=== PATIENT | male | born 1980 | race Caucasian/White ===

== ENCOUNTER 2024-09-03 17:03 | Emergency (ER) | payer MEDICAID ==
[~2024-09-03] VITALS: Ht 175.3 cm; Wt 81.8 kg
[2024-09-03 17:05] VITALS: BP 128/91; PULSE 100; RESP 16; TEMP 97.6; O2SAT 98
== END 2024-09-03 18:34 | disposition left against medical advice (07) ==
LOC: ER 17:03
DX: Z02.89 Encounter for other administrative examinations (principal); Z53.21 Procedure and treatment not carried out due to patient leaving prior to being seen by health care provider

== ENCOUNTER 2024-09-04 06:22 | Emergency (ER) | payer MEDICAID ==
[~2024-09-04] VITALS: Ht 175.3 cm; Wt 71.4 kg
[2024-09-04 06:41] VITALS: BP 113/77; PULSE 93; TEMP 98.1; O2SAT 98
[2024-09-04 07:39] LABS: BASOPHILS # (AUTO) 0.1 X10'3 (0-0.2); BASOPHILS % (AUTO) 1.1 % (0-1); EOSINOPHILS # (AUTO) 0.2 X10'3 (0-0.9); EOSINOPHILS % (AUTO) 4.7 % (0-6); HEMOGLOBIN 13.3 g/dl (14.0-17.9); LYMPHOCYTES # (AUTO) 1.6 X10'3 (1.1-4.8); LYMPHOCYTES % (AUTO) 29.6 % (21-51); MEAN CORPUSCULAR HEMOGLOBIN 31.8 PG (27.0-31.0); MEAN CORPUSCULAR VOLUME 93.4 FL (78-98); MEAN PLATELET VOLUME 9.1 FL (7.4-10.4); MONOCYTES # (AUTO) 0.4 X10'3 (0-0.9); MONOCYTES % (AUTO) 6.6 % (2-12); NEUTROPHILS # (AUTO) 3.1 X10'3 (1.8-7.7); PLATELET COUNT 161 X10'3 (140-440); RED BLOOD COUNT 4.18 X10'6 (4.70-6.10); WHITE BLOOD COUNT 5.3 X10'3 (4.5-11.0)
[2024-09-04 07:50] VITALS: RESP 16
[2024-09-04 08:25] LABS: ALBUMIN 3.4 G/DL (3.4-5.0); ANION GAP 5 (8-16); BLOOD UREA NITROGEN 15 MG/DL (7-18); BUN/CREATININE RATIO 14.9 (10.0-20.0); CALCIUM 8.4 MG/DL (8.5-10.1); CHLORIDE 107 MMOL/L (99-107); CREATININE 1.01 MG/DL (0.60-1.10); GLUCOSE 123 MG/DL (70-104); POTASSIUM 3.6 MMOL/L (3.5-5.1); SODIUM 139 MMOL/L (135-145); THYROID STIMULATING HORMONE 0.63 ulU/ml (0.34-4.50); TOTAL CARBON DIOXIDE 27.5 MMOL/L (24-32); eCRCL 91 ML/MIN; eGFR 80 ML/MIN
[2024-09-04 08:27] LABS: ETHANOL < 10 MG/DL (<10)
== END 2024-09-04 07:40 | disposition home or self-care (01) ==
LOC: ER 06:23
DX: F12.10 Cannabis abuse, uncomplicated (principal); F15.10 Other stimulant abuse, uncomplicated; Z20.822 Contact with and (suspected) exposure to COVID-19
CPT/HCPCS: 36415; 80048; 80320; 84443; 85025; 87811; 99283

== ENCOUNTER 2024-09-15 20:33 | Emergency (ER) | payer MEDICAID ==
[~2024-09-15] VITALS: Ht 175.3 cm; Wt 75.7 kg
[2024-09-15 20:55] VITALS: BP 103/65; PULSE 97; RESP 18; TEMP 98.1; O2SAT 98
== END 2024-09-15 21:13 | disposition left against medical advice (07) ==
LOC: ER 20:33
DX: F15.10 Other stimulant abuse, uncomplicated (principal); F11.23 Opioid dependence with withdrawal
CPT/HCPCS: 99281

== ENCOUNTER 2024-09-17 08:57 | Emergency (ER) | payer MEDICAID, OTHER ==
[~2024-09-17] VITALS: Ht 175.3 cm; Wt 70.4 kg
[2024-09-17 09:01] VITALS: BP 125/87; PULSE 99; RESP 16; TEMP 97.7; O2SAT 100
== END 2024-09-17 10:22 | disposition home or self-care (01) ==
LOC: ER 08:57
DX: F15.10 Other stimulant abuse, uncomplicated (principal); F99 Mental disorder, not otherwise specified
CPT/HCPCS: 99281

== ENCOUNTER 2024-10-01 20:56 | Emergency (ER) | payer MEDICARE, MEDICAID ==
[~2024-10-01] VITALS: Ht 177.8 cm; Wt 65.9 kg
[2024-10-01 21:01] VITALS: BP 144/78; PULSE 88; RESP 14; TEMP 98.1; O2SAT 98
== END 2024-10-01 22:23 | disposition left against medical advice (07) ==
LOC: ER 20:58
DX: Z02.89 Encounter for other administrative examinations (principal); Z53.21 Procedure and treatment not carried out due to patient leaving prior to being seen by health care provider

== ENCOUNTER 2024-10-04 08:31 | Emergency (ER) | payer MEDICARE, MEDICAID ==
[~2024-10-04] VITALS: Ht 175.3 cm; Wt 68.2 kg
[2024-10-04 10:15] VITALS: BP 118/78; PULSE 98; RESP 18; TEMP 98.5; O2SAT 97
== END 2024-10-04 10:18 | disposition home or self-care (01) ==
LOC: ER 08:32
DX: F15.10 Other stimulant abuse, uncomplicated (principal); F12.10 Cannabis abuse, uncomplicated
CPT/HCPCS: 99281

== ENCOUNTER 2024-10-26 00:58 | Emergency (ER) | payer MEDICARE, MEDICAID ==
[~2024-10-26] VITALS: Ht 182.9 cm; Wt 97.7 kg
[2024-10-26 00:59] VITALS: BP 155/90; PULSE 102; RESP 18; TEMP 97.9; O2SAT 98
[2024-10-26] MEDS: acetaminophen 325mg tablet PO ONE (02:45)
== END 2024-10-26 02:50 | disposition home or self-care (01) ==
LOC: ER 00:59
DX: Z00.00 Encounter for general adult medical examination without abnormal findings (principal)
CPT/HCPCS: 99282